=== PATIENT | female | born 1990 | race Caucasian/White ===

== ENCOUNTER 2016-12-10 17:20 | Emergency (ER) | payer OTHER ==
[~2016-12-10] VITALS: Ht 172.7 cm; Wt 60.7 kg
[2016-12-10 17:25] VITALS: TEMP 36.7; Ht 172.7 cm; Wt 60.7 kg
[2016-12-10] MEDS ORDERED: SODIUM CHLORIDE 0.9% 1000ML 1,000 ML IV ONE (17:36)
[2016-12-10] MEDS ORDERED: ONDANSETRON INJ 2 MG/ML 2 ML VIAL IV STA ×2 (17:36→18:49)
[2016-12-10] MEDS ORDERED: SODIUM CHLORIDE 0.9% 1000ML 1,000 ML IV STA ×2 (17:36→18:49)
--- NOTE | 2016-12-10 17:40 | EMERGENCY ROOM VISIT NOTE ---
History Report prepared by Camille: Maninder Dawkins Under the Supervision of: Dr. Atilio Brenner M.D. First contact with patient: 17:30 Chief Complaint: VOMITING Stated Complaint: VOMITING, FAINTING, STOMACH BUG History of Present Illness The patient is a 26 year old female who presents to the Emergency Room with complaints of persistent vomiting since she woke up this morning. The patient also woke up with nausea and diarrhea. The patient has a history of vasovagal episodes and notes that she passed out after vomiting today. She did not injure herself. The patient has a headache which she attributes to dehydration. She does complain of abdominal pain. The patient denies any fevers, chest pain, shortness of breath, urinary symptoms, or blood in her stools. Her roommate recently had similar symptoms. The patient has never had surgery of the abdomen. The patient cannot role out the possibility of . She denies recent falls or trauma. She [place]. She was on antibiotics last month for a sinus infection. The patient denies any medical problems. Source of History: patient, friend Onset: this morning Position: other (GI) Quality: other (vomiting) Timing: other (persistent) Associated Symptoms: + LOC, + abdominal pain, + diarrhea, + headache, + nausea, No SOB, No chest pain, No fevers, No hematochezia, No melena, No urinary symptoms Review of Systems See HPI for pertinent positives & negatives. A total of 10 systems reviewed and were otherwise negative. Past Medical & Surgical Medical Problems: (1) Sinus infection Old medical records were reviewed. Nurse's notes were reviewed and I agree with. Family History No pertinent family history Social History Smoking Status: Never Smoker Occupation Status: [employer] student Current/Historical Medications Scheduled Control Pills ( Control Pills), 1 TAB PO DAILY Multivitamin (Multivitamin), 1 TAB PO DAILY Allergies Coded Allergies: No Known Allergies (Unverified , 12/10/16) Physical Exam Vital Signs Date Time Temp Pulse Resp B/P Pulse Ox O2 Delivery O2 Flow Rate FiO2 12/10/16 21:28 81 16 110/41 99 Room Air 12/10/16 17:25 36.7 68 16 109/66 98 Room Air Physical Exam General: Mildly ill appearing young female in no acute distress, breathing comfortably on room air. Normal speech HEENT: Normal cephalic atraumatic. Pupils are equal round and reactive to light. Extraocular movements are intact. Oropharynx is pink with moist mucous membranes. No swelling of the mouth lips or tongue. Neck: Supple with a midline trachea. No meningeal signs or stiffness, no JVD or bruits. No Stridor. Chest: Clear to auscultation bilaterally. No wheezes or rhonchi. No increased work of breathing. Heart: regular rate and rhythm. Abdomen: Abdomen in minimally diffusely tender, no peritonitis. Extremities: No cyanosis clubbing or edema. No calf tenderness or assymetry Spine/Back. Non tender to palpation. No CVA tenderness Skin: Good turgor without rashes. Neurologic exam: Cranial nerves two through 12 are intact. Motor and sensation are intact and symmetrical throughout. Medical Decision & Procedures Laboratory Results 12/10/16 17:55 Red Blood Count 4.75, Mean Corpuscular Volume 88.0, Mean Corpuscular Hemoglobin 29.7, Mean Corpuscular Hemoglobin Concent 33.7, Mean Platelet Volume 11.7, Neutrophils (%) (Auto) 95.3, Lymphocytes (%) (Auto) 2.6, Monocytes (%) (Auto) 1.9, Eosinophils (%) (Auto) 0.0, Basophils (%) (Auto) 0.0, Neutrophils # (Auto) 8.59, Lymphocytes # (Auto) 0.23, Monocytes # (Auto) 0.17, Eosinophils # (Auto) 0.00, Basophils # (Auto) 0.00 12/10/16 17:55 Test 12/10/16 17:55 White Blood Count 9.01 K/uL (4.8-10.8) Red Blood Count 4.75 M/uL (4.2-5.4) Hemoglobin 14.1 g/dL (12.0-16.0) Hematocrit 41.8 % (37-47) Mean Corpuscular Volume 88.0 fL (80-100) Mean Corpuscular Hemoglobin 29.7 pg (25-34) Mean Corpuscular Hemoglobin Concent 33.7 g/dl (32-36) Platelet Count 108 K/uL (130-400) Mean Platelet Volume 11.7 fL (7.4-10.4) Neutrophils (%) (Auto) 95.3 % Lymphocytes (%) (Auto) 2.6 % Monocytes (%) (Auto) 1.9 % Eosinophils (%) (Auto) 0.0 % Basophils (%) (Auto) 0.0 % Neutrophils # (Auto) 8.59 K/uL (1.4-6.5) Lymphocytes # (Auto) 0.23 K/uL (1.2-3.4) Monocytes # (Auto) 0.17 K/uL (0.11-0.59) Eosinophils # (Auto) 0.00 K/uL (0-0.5) Basophils # (Auto) 0.00 K/uL (0-0.2) RDW Standard Deviation 39.6 fL (36.4-46.3) RDW Coefficient of Variation 12.4 % (11.5-14.5) Immature Granulocyte % (Auto) 0.2 % Immature Granulocyte # (Auto) 0.02 K/uL (0.00-0.02) Anion Gap 9.0 mmol/L (3-11) Est Creatinine Clear Calc Drug Dose 105.2 ml/min Estimated GFR () 121.4 Estimated GFR (Non- 104.8 BUN/Creatinine Ratio 19.1 (10-20) Calcium Level 8.4 mg/dl (8.5-10.1) Total Bilirubin 0.7 mg/dl (0.2-1) Direct Bilirubin 0.2 mg/dl (0-0.2) Aspartate Amino Transf (AST/SGOT) 18 U/L (15-37) Alanine Aminotransferase (ALT/SGPT) 25 U/L (12-78) Alkaline Phosphatase 46 U/L (45-117) Total Protein 7.4 gm/dl (6.4-8.2) Albumin 4.1 gm/dl (3.4-5.0) Lipase 130 U/L (73-393) Human Chorionic Gonadotropin, Qual NEG (NEG) Laboratory studies as stated above per my review. Medications Administered Medications (Trade) Dose Ordered Sig/Tana Route Start Time Stop Time Status Last Admin Dose Admin Sodium Chloride 1,000 ml @ 999 mls/hr Q1H1M STAT IV 12/10/16 17:36 12/10/16 18:36 DC 12/10/16 17:58 999 MLS/HR Sodium Chloride (Nss 1000ml) 1,000 ml @ 200 mls/hr Q5H ONCE IV 12/10/16 17:36 12/10/16 22:03 DC 12/10/16 17:36 200 MLS/HR Ondansetron HCl 4 mg 4 mg NOW STAT IV 12/10/16 17:36 12/10/16 17:37 DC 12/10/16 17:36 4 MG Sodium Chloride (Nss 1000ml) 1,000 ml @ 999 mls/hr Q1H1M STAT IV 12/10/16 18:49 12/10/16 19:49 DC 12/10/16 19:11 999 MLS/HR Ondansetron HCl (Zofran Inj) 4 mg NOW STAT IV 12/10/16 18:49 12/10/16 18:50 DC 12/10/16 19:11 4 MG Ketorolac Tromethamine (Toradol Inj) 30 mg NOW STAT IV 12/10/16 18:49 12/10/16 18:50 DC 12/10/16 19:12 30 MG Ondansetron HCl (ZOFRAN ODT 4MG Home Pack) 1 homepack UD ONCE PO 12/10/16 20:45 12/10/16 20:46 DC 12/10/16 21:29 1 HOMEPACK ECG Indication: abdominal pain Rate (beats per minute): 95 Rhythm: normal sinus Findings: no acute ischemic change, prolonged QT (mild), no ectopy ED Course 1730: Past medical records reviewed. The patient was evaluated in room C3, and a complete history and physical examination were performed. 1736: Zofran 4 mg IV, NSS 1000 ml @ 200 mls/hr, NSS 1000 ml @ 999 mls/hr. 1848: The patient is starting to feel better. 1849: Toradol 30 mg IV, Zofran 4 mg IV, NSS 1000 ml @ 999 mls/hr. 2045: Zofran Odt 4 mg PO homepack. 2130: Reassessed the patient. Discussed the findings with her. She verbalized understanding and agreement of the treatment plan. The patient is ready for discharge. Medical Decision Differential diagnosis includes dehydration, vasovagal episode, electrolyte or metabolic abnormality. This patient comes in as described above. She was placed in room C3. She is here for treatment and evaluation of nausea vomiting diarrhea. She also had several vasovagal episodes. she says that she typically gets when she gets sick. Her abdomen is benign and nonfocal he tender. IV access established hydrated normal saline. She was given Zofran 4 mg IV. Multiple blood tests was obtained as well as an EKG. She was reassessed frequently. She did receive a total 2 L IV normal saline and felt much better. She did receive additional Zofran IV as well as Toradol 30 mg IV. She has no significant electrolyte or metabolic abnormalities she's nothing she just infection or sepsis she's no peritonitis. EKG does not suggest any significant arrhythmia. I gave her a couple Zofran to go home if she needs them she is to rest and drink plenty of fluids. I think this was a vasovagal episode related to GI gastroenteritis type illness. She is to return if: worsening of symptoms, any new problems or concerns. She was happy with plan and discharged home. She follow up with her doctor Monday for recheck if not better or return here over the weekend if symptoms worsen. Impression Primary Impression: Nausea, vomiting, and diarrhea Additional Impression: Vasovagal episode Scribe Attestation The scribe's documentation has been prepared under my direction and personally reviewed by me in its entirety. I confirm that the note above accurately reflects all work, treatment, procedures, and medical decision making performed by me. Departure Information Dispostion Home / Self-Care Referrals No Doctor, Assigned (PCP) Forms HOME CARE DOCUMENTATION FORM, IMPORTANT VISIT INFORMATION Patient Instructions My [facility] Additional Instructions Rest Drink plenty of fluids Return if: worsening of symptoms, not tolerating fluids, fever or chills, any new problems or concerns May use Zofran 4 mg every 8 hours if needed for nausea or vomiting Problem Qualifiers
[2016-12-10] MEDS ORDERED: MULT-506 PO (18:06)
[2016-12-10] MEDS ORDERED: BCPILLS PO (18:06)
[2016-12-10 18:22] LABS: COMPLETE YES; HEMATOCRIT 41.8 % (37-47); IG% 0.2 %; LYMPH % 2.6 %; LYMPH ABS # 0.23 K/uL (1.2-3.4); MEAN CORPUSCULAR HEMOGLOBIN 29.7 pg (25-34); MEAN CORPUSCULAR HGB CONC 33.7 g/dl (32-36); MEAN PLATELET VOLUME 11.7 fL (7.4-10.4); MONO % 1.9 %; NEUT % 95.3 %; PLATELET COUNT 108 K/uL (130-400); RED BLOOD COUNT 4.75 M/uL (4.2-5.4); WHITE BLOOD COUNT 9.01 K/uL (4.8-10.8)
[2016-12-10 18:31] LABS: BUN/CREATININE RATIO 19.1 (10-20); CALCIUM 8.4 mg/dl (8.5-10.1); CREATININE 0.79 mg/dl (0.60-1.20)
[2016-12-10 18:39] LABS: PREG INTERNAL NEGATIVE QC NEG CLEAR BACKGROUND; PREG INTERNAL POSITIVE QC POS CONTROL LINE
[2016-12-10] MEDS ORDERED: KETOROLAC TROMETHAMINE 30 MG/ML VIAL IV STA (18:49)
[2016-12-10] MEDS ORDERED: ONDANSETRON HOME PACK 4MG OD TAB PO ONE (20:45)
[2016-12-10 21:28] VITALS: BP 110/41; PULSE 81; O2SAT 99
== END 2016-12-10 21:35 | disposition home or self-care (01) ==
LOC: C.EDB 17:22 → C.EDC 21:35
DX: R11.2 Nausea with vomiting, unspecified (principal); R19.7 Diarrhea, unspecified; R55 Syncope and collapse; Z86.19 Personal history of other infectious and parasitic diseases